=== PATIENT | male | born 1955 | race Caucasian/White ===

== ENCOUNTER 2018-09-10 22:52 | Outpatient (REF) | payer OTHER, SELFPAY ==
[2018-09-10 23:13] LABS: Anion Gap 10.4 mmol/L (3-11); BUN 21 mg/dL (7-18); CO2 25.6 mmol/L (21.0-32.0); CREATININE 0.99 mg/dL (0.70-1.30); Calcium 8.6 mg/dL (8.5-10.1); Chloride 105 mmol/L (98-107); Cholesterol 247 mg/dL (50-200); Glucose 128 mg/dL (70-100); HDL Cholesterol 55 mg/dL (40-60); LDL CHOLESTEROL 166 mg/dL (<100); Potassium 4.3 mmol/L (3.5-5.1); Sodium 141 mmol/L (136-145); Triglyceride 198 mg/dL (30-150)
== END 2018-09-10 23:12 ==
LOC: NCHCN 22:52
PROVIDERS: PCP Physician Assistant Medical; Visit Provider Specialist/Technologist Athletic Trainer
DX: Z00.00 Encounter for general adult medical examination without abnormal findings (principal); Z13.220 Encounter for screening for lipoid disorders; Z13.228 Encounter for screening for other metabolic disorders
CPT/HCPCS: 80048; 80061; 83721

== ENCOUNTER 2019-12-10 07:48 | Outpatient (REF) | payer OTHER, SELFPAY ==
[2019-12-10 18:10] LABS: ALT 22 U/L (16-63); AST 25 U/L (15-37); Albumin 4.1 g/dL (3.4-5.0); Alkaline Phosphatase 55 U/L (46-116); Anion Gap 11.1 mmol/L (3-11); BUN 21 mg/dL (7-18); Bilirubin, Total 0.4 mg/dL (0.2-1.0); CO2 22.9 mmol/L (21.0-32.0); CREATININE 0.86 mg/dL (0.70-1.30); Calcium 8.6 mg/dL (8.5-10.1); Chloride 103 mmol/L (98-107); Glucose 114 mg/dL (74-106); Potassium 4.2 mmol/L (3.5-5.1); Sodium 137 mmol/L (136-145); Total Protein 6.9 g/dL (6.4-8.2)
[2019-12-10 18:44] LABS: Calculated LDL 166 mg/dL (<100); Cholesterol 236 mg/dL (<200); HDL Cholesterol 49 mg/dL (40-60); Triglyceride 107 mg/dL (<150)
== END 2019-12-10 08:08 ==
LOC: NCHCN 07:48
PROVIDERS: PCP Physician Assistant Medical; Visit Provider Nurse Practitioner Family
DX: E78.5 Hyperlipidemia, unspecified (principal); Z00.00 Encounter for general adult medical examination without abnormal findings
CPT/HCPCS: 80053; 80061

== ENCOUNTER 2020-02-09 18:22 | Outpatient (REF) | payer OTHER, SELFPAY ==
[2020-02-09 19:53] LABS: Hemoglobin A1C 5.9 % (3.8-5.6)
== END 2020-02-09 18:42 ==
LOC: NCHCN 18:22
PROVIDERS: PCP Physician Assistant Medical; Visit Provider Nurse Practitioner Family
DX: R73.03 Prediabetes (principal)
CPT/HCPCS: 83036

== ENCOUNTER 2020-05-04 07:52 | Outpatient (REF) | payer OTHER, SELFPAY ==
[2020-05-08 12:52] LABS: PSA, Screening 4.7 ng/mL (0.0-4.5)
== END 2020-05-04 08:12 ==
LOC: NCHCN 07:52
PROVIDERS: PCP Physician Assistant Medical; Visit Provider Nurse Practitioner Family
DX: N40.0 Benign prostatic hyperplasia without lower urinary tract symptoms (principal); Z12.5 Encounter for screening for malignant neoplasm of prostate
CPT/HCPCS: 84153

== ENCOUNTER 2020-11-22 03:27 | Outpatient (CLI) | payer MEDICARE, SELFPAY ==
[2020-11-22 17:06] LABS: PSA, Screening 5.9 ng/mL (0.0-4.5)
== END 2020-11-22 03:28 | disposition home or self-care (01) ==
LOC: LBO 03:27
PROVIDERS: PCP Nurse Practitioner Family; Visit Provider Nurse Practitioner Gerontology
DX: N40.1 Benign prostatic hyperplasia with lower urinary tract symptoms (principal); Z12.5 Encounter for screening for malignant neoplasm of prostate
CPT/HCPCS: 36415; 84153

== ENCOUNTER → 2020-11-30 15:38 | Outpatient (BNVA) | payer MEDICARE, SELFPAY | PROVIDERS: PCP Nurse Practitioner Family; Referring Provider Nurse Practitioner Family; Visit Provider Nurse Practitioner Gerontology | DX: N40.1 Benign prostatic hyperplasia with lower urinary tract symptoms (principal); R97.20 Elevated prostate specific antigen [PSA] | CPT/HCPCS: 99442 ==

== ENCOUNTER 2021-02-22 03:03 | Outpatient (CLI) | payer MEDICARE, SELFPAY ==
[2021-02-23 14:31] LABS: Free PSA/PSA Ratio 0.16 ratio
== END 2021-02-22 03:04 | disposition home or self-care (01) ==
LOC: LBO 03:03
PROVIDERS: PCP Nurse Practitioner Family; Visit Provider Nurse Practitioner Gerontology
DX: N40.1 Benign prostatic hyperplasia with lower urinary tract symptoms (principal); R97.20 Elevated prostate specific antigen [PSA]
CPT/HCPCS: 36415; 84154

== ENCOUNTER → 2021-03-01 15:17 | Outpatient (BNVA) | payer MEDICARE, SELFPAY | PROVIDERS: PCP Nurse Practitioner Family; Referring Provider Nurse Practitioner Family; Visit Provider Nurse Practitioner Gerontology | DX: R97.20 Elevated prostate specific antigen [PSA] (principal); N40.1 Benign prostatic hyperplasia with lower urinary tract symptoms; N13.8 Other obstructive and reflux uropathy | CPT/HCPCS: 99213 ==

== ENCOUNTER 2021-08-29 03:15 | Outpatient (CLI) | payer MEDICARE, SELFPAY ==
[2021-08-29 23:09] LABS: PSA, Diagnostic 5.4 ng/mL (0.0-4.5)
== END 2021-08-29 03:16 | disposition home or self-care (01) ==
LOC: LBO 03:15
PROVIDERS: PCP Nurse Practitioner Family; Visit Provider Nurse Practitioner Gerontology
DX: N40.1 Benign prostatic hyperplasia with lower urinary tract symptoms (principal); R97.20 Elevated prostate specific antigen [PSA]
CPT/HCPCS: 36415; 84153

== ENCOUNTER → 2021-09-05 14:17 | Outpatient (BNVA) | payer MEDICARE, SELFPAY | PROVIDERS: PCP Nurse Practitioner Family; Visit Provider Nurse Practitioner Gerontology | DX: N40.1 Benign prostatic hyperplasia with lower urinary tract symptoms (principal); R97.20 Elevated prostate specific antigen [PSA]; Z79.899 Other long term (current) drug therapy | CPT/HCPCS: 99214 ==

== ENCOUNTER 2022-01-22 21:44 | Outpatient (REF) | payer MEDICARE, SELFPAY ==
[2022-01-22 19:59] LABS: Hemoglobin A1C 6.1 % (<5.7)
[2022-01-22 20:08] LABS: Calculated LDL 143 mg/dL (<100); Cholesterol 233 mg/dL (<200); HDL Cholesterol 55 mg/dL (40-60); Triglyceride 176 mg/dL (<150)
== END 2022-01-22 21:45 | disposition home or self-care (01) ==
LOC: NCHCN 21:44
PROVIDERS: PCP Nurse Practitioner Family; Visit Provider Nurse Practitioner Family
DX: E78.5 Hyperlipidemia, unspecified (principal); R73.03 Prediabetes
CPT/HCPCS: 80061; 83036

== ENCOUNTER 2022-02-28 02:34 | Outpatient (CLI) | payer MEDICARE, SELFPAY | END 2022-02-28 02:35 | disposition home or self-care (01) | LOC: LBO 02:34 | PROVIDERS: PCP Nurse Practitioner Family; Visit Provider Nurse Practitioner Gerontology | DX: N40.1 Benign prostatic hyperplasia with lower urinary tract symptoms (principal); R97.20 Elevated prostate specific antigen [PSA] | CPT/HCPCS: 36415; 84153 ==

== ENCOUNTER → 2022-03-07 14:14 | Outpatient (BNVA) | payer MEDICARE, SELFPAY | PROVIDERS: PCP Nurse Practitioner Family; Referring Provider Nurse Practitioner Family; Visit Provider Nurse Practitioner Gerontology | DX: N13.8 Other obstructive and reflux uropathy (principal); N40.1 Benign prostatic hyperplasia with lower urinary tract symptoms; R97.20 Elevated prostate specific antigen [PSA] | CPT/HCPCS: 99214 ==

== ENCOUNTER 2022-09-02 02:59 | Outpatient (CLI) | payer MEDICARE, SELFPAY ==
[2022-09-02 22:17] LABS: PSA, Diagnostic 4.3 ng/mL (<=4.5)
== END 2022-09-02 03:00 | disposition home or self-care (01) ==
LOC: LBO 02:59
PROVIDERS: PCP Nurse Practitioner Family; Visit Provider Nurse Practitioner Gerontology
DX: R97.20 Elevated prostate specific antigen [PSA] (principal); N40.1 Benign prostatic hyperplasia with lower urinary tract symptoms
CPT/HCPCS: 36415; 84153

== ENCOUNTER → 2022-09-10 13:45 | Outpatient (BNVA) | payer MEDICARE, SELFPAY | PROVIDERS: PCP Nurse Practitioner Family; Referring Provider Nurse Practitioner Family; Visit Provider Nurse Practitioner Gerontology | DX: R39.89 Other symptoms and signs involving the genitourinary system (principal); R97.20 Elevated prostate specific antigen [PSA]; N40.1 Benign prostatic hyperplasia with lower urinary tract symptoms | CPT/HCPCS: 51798; 99213 ==

== ENCOUNTER 2023-03-04 02:57 | Outpatient (CLI) | payer MEDICARE, SELFPAY ==
[2023-03-04 20:21] LABS: PSA, Diagnostic 4.6 ng/mL (<=4.5)
== END 2023-03-04 02:58 | disposition home or self-care (01) ==
LOC: LBO 02:57
PROVIDERS: PCP Nurse Practitioner Family; Visit Provider Nurse Practitioner Gerontology
DX: R97.20 Elevated prostate specific antigen [PSA] (principal); N40.1 Benign prostatic hyperplasia with lower urinary tract symptoms
CPT/HCPCS: 36415; 84153

== ENCOUNTER → 2023-03-11 14:14 | Outpatient (BNVA) | payer MEDICARE, SELFPAY | PROVIDERS: PCP Nurse Practitioner Family; Visit Provider Nurse Practitioner Gerontology | DX: R97.20 Elevated prostate specific antigen [PSA] (principal); N40.1 Benign prostatic hyperplasia with lower urinary tract symptoms; R39.89 Other symptoms and signs involving the genitourinary system | CPT/HCPCS: 51798; 99213 ==

== ENCOUNTER 2023-06-15 14:10 | Emergency (ER) | payer MEDICARE, SELFPAY ==
[2023-06-15 14:20] VITALS: BP 139/84; PULSE 89; RESP 18; TEMP 37; O2SAT 96
[2023-06-15] MEDS: Lidocaine/Epinephri/Tetracaine Topical Gel 3 ML TP (14:57)
--- NOTE | 2023-06-15 15:30 | ED.GENADUL_ITS ---
Discharge Plan Disposition Patient Disposition: Home Condition: Stable Discharge Details Clinical Impression: Laceration of hand, left Primary Care Provider: Selina Wise ED Provider: Gentry Stanley Home Meds and New Rx's Prescriptions: Continued vmskprc-ltgn-olhvf-oreg-capryl 100 mg-150 mg- 50 mg-150 mg capsule 1 cap PO DAILY vitamn C 500 mg PO DAILY Discontinued tamsulosin [Flomax] 0.4 mg capsule 0.4 mg PO DAILY Qty: 90 3RF Discharge Instructions Instructions: Laceration (ED) Additional Instructions: Keep dressing intact for the next 2 days. Change dressing daily thereafter. Monitor for signs of infection including increased warmth, redness, swelling, discharge or pain. Return to the ER immediately for any worsening or new concerning symptoms. Sutures should be removed in 14 days. Please contact your primary care physician to arrange follow-up. Referrals: Selina Wise [Primary Care Provider] - Medical Decision Making 68-year-old male here with full-thickness laceration left dorsal hand that occ urred on sheet-metal just prior to arrival. Wound was anesthetized with topical lidocaine and local injection. Wound was irrigated with copious sterile saline. Laceration repaired without complicat ion. Sterile dressing was applied. Usual customary discharge instructions were reviewed with patient HPI General Mode of arrival: ambulatory . Date/Time Provider Initiated Documentation: 06/15/23 14:22 . Limitations to Documentation: no limitations . Information obtained by: patient . HPI Narrative: 68-year-old male here with chief complaint of laceration to his left hand. Laceration occurred just prior to arrival. Patient notes he cut his hand on sheet metal. Unsure of last tetanus status. No associated numbness or tingling. No focal weakness. Related Data Home Medications Medication Instructions Recorded Confirmed tumeric 100 mg-brynn 150 mg-olive 1 cap PO DAILY 06/15/23 06/15/23 50 mg-oreg 150 mg-caprylate capsule vitamn C 500 mg PO DAILY 06/15/23 06/15/23 Allergies Allergy/AdvReac Type Severity Reaction Status Date / Time Kqslgpb-FLH-PqX Reductase Allergy lethargy Verified 06/15/23 14:23 Inhibitor [Npowwjo-Iuq-Pxu Reductase Inhibitor] General Stated Complaint: Laceration JIM: 4 Review of Systems Integumentary/Breasts Skin/Breast: Reports as per HPI PFSH All Active Problems Laceration of hand, left (Acute) Elevated PSA (Acute) BPH loc w urin obs/LUTS (Chronic) Medical History Adenomatous polyp of colon Right inguinal hernia Kidney stones Surgical History Colonoscopy - IV Sedation Family History Other Heart disease Myocardial infarction Stroke Social History Smoking/Tobacco Use Status: Never Smoking risk assessment performed?: Yes Alcohol Intake: current Alcohol Intake frequency: a few times a week Drug use: Occasionally Substance use type: marijuana Housing: house Do you feel safe at home: Yes Do you feel safe in your relationship?: Yes Exam Extrem Right upper extremity: hand Details: normal capillary refill, neuromotor exam normal, neurosensory exam normal, tendon exam normal and laceration (5cm linear laceration dorsal rt hand full thickness ) Course Vital Signs Vital signs: Vital Signs Temperature 37 C 06/15/23 14:20 Pulse 89 06/15/23 14:20 Respiratory Rate 18 06/15/23 14:20 Blood Pressure 139/84 06/15/23 14:20 Pulse Oximetry 96 06/15/23 14:20 Temperature 37 C 06/15/23 14:20 Temperature Source Temporal Artery Scan 06/15/23 14:20 Pulse 89 06/15/23 14:20 Respiratory Rate 18 06/15/23 14:20 Blood Pressure 139/84 06/15/23 14:20 Blood Pressure Position Sitting 06/15/23 14:20 Pulse Oximetry 96 06/15/23 14:20 Oxygen Delivery Method Room Air 06/15/23 14:20 Oxygen Flow Rate 0 06/15/23 14:20 Procedures Laceration Laceration 1: Site: hand Side (If applicable): right Size (cm): 5 Description: linear Depth: simple, single layer Local Anesthetic: Lidocaine 1% and with Epi Amount of anesthesia used (mL): 4 Pre-repair: wound explored, irrigated extensively and deep structures intact Skin layer closed with: nylon Size (cm): 4-0 Number of sutures: 6 Technique: simple, interrupted PAWSS Have you Been Recently Intoxicated or Drunk Within the Last 30 days?: No Have you Ever Experienced Previous Episodes of Alcohol Withdrawal?: No Have you ever Experienced Withdrawal Seizures?: No Have you ever Experienced Delirium Tremens(DT)s?: No Have you ever undergone Alcohol Rehabilitation Treatment (i.e, inpt ot outpatient treatment programs)?: No Have you ever Experienced Blackouts?: No Have you ever Combined Alcohol with other Downers within the last 90 days?: No Have you ever Combined Alcohol with any other Substance of Abuse during the last 90 days?: No Positive Blood Alcohol level on Presentation? [PCS.BAL]: No Evidence of Increased Autonomic Activity (i.e. HR>120, tremor, sweating, agitation, nausea)?: No Result: 0
== END 2023-06-15 15:44 | disposition home or self-care (01) ==
PROVIDERS: Emergency Provider Student in an Organized Health Care Education/Training Program; PCP Nurse Practitioner Family
DX: M79.642 Pain in left hand (principal); S61.412A Laceration without foreign body of left hand, initial encounter; W26.8XXA Contact with other sharp object(s), not elsewhere classified, initial encounter
CPT/HCPCS: 12002

== ENCOUNTER 2023-09-03 02:46 | Outpatient (CLI) | payer MEDICARE, SELFPAY | END 2023-09-03 02:47 | disposition home or self-care (01) | LOC: LBO 02:46 | PROVIDERS: PCP Nurse Practitioner Family; Visit Provider Nurse Practitioner Gerontology | DX: N40.1 Benign prostatic hyperplasia with lower urinary tract symptoms (principal); R97.20 Elevated prostate specific antigen [PSA] | CPT/HCPCS: 36415; 84153 ==

== ENCOUNTER → 2023-09-10 14:16 | Outpatient (BNVA) | payer MEDICARE, SELFPAY | PROVIDERS: PCP Nurse Practitioner Family; Visit Provider Nurse Practitioner Gerontology | DX: N40.1 Benign prostatic hyperplasia with lower urinary tract symptoms (principal); R97.20 Elevated prostate specific antigen [PSA]; R35.0 Frequency of micturition | CPT/HCPCS: 51798; 99213 ==

== ENCOUNTER 2024-03-03 03:55 | Outpatient (CLI) | payer MEDICARE, SELFPAY ==
[2024-03-03 19:19] LABS: PSA, Diagnostic 4.8 ng/mL (<=4.5)
== END 2024-03-03 03:56 | disposition home or self-care (01) ==
LOC: LBO 03:55
PROVIDERS: PCP Nurse Practitioner Family; Visit Provider Nurse Practitioner Gerontology
DX: R97.20 Elevated prostate specific antigen [PSA] (principal); N40.1 Benign prostatic hyperplasia with lower urinary tract symptoms
CPT/HCPCS: 36415; 84153

== ENCOUNTER → 2024-03-10 09:09 | Outpatient (BNVA) | payer MEDICARE, SELFPAY | PROVIDERS: PCP Nurse Practitioner Family; Referring Provider Nurse Practitioner Family; Visit Provider Nurse Practitioner Gerontology | DX: N40.1 Benign prostatic hyperplasia with lower urinary tract symptoms (principal); R97.20 Elevated prostate specific antigen [PSA] | CPT/HCPCS: 51798; 99213 ==

== ENCOUNTER 2024-03-31 14:44 | Outpatient (REF) | payer MEDICARE, SELFPAY ==
[2024-03-31 19:19] LABS: HGB 13.1 g/dL (13.5-17.5); MCH 31.8 pg (27.0-33.0); MCHC 33.6 % (32.0-36.0); MCV 95 fL (80-95); MPV 11.5 fL (8.0-11.0); Platelet Count 327 10^3/uL (130-400); RBC 4.12 10^6/uL (4.36-5.78); RDW 13.2 % (11.8-14.1); RDW-SD 45.7 fL; WBC 9.36 10^3/uL (4.4-10.8)
[2024-03-31 19:27] LABS: ALT 13 U/L (16-63); AST 32 U/L (15-37); Albumin 4.1 g/dL (3.4-5.0); Alkaline Phosphatase 74 U/L (46-116); Anion Gap 10.6 mmol/L (3-11); BUN 34 mg/dL (7-18); Bilirubin, Total 0.27 mg/dL (0.2-1.0); CO2 25.4 mmol/L (21.0-32.0); CREATININE 0.9 mg/dL (0.70-1.30); Calcium 9.9 mg/dL (8.5-10.1); Calculated LDL 133 mg/dL (<100); Chloride 106 mmol/L (98-107); Cholesterol 218 mg/dL (<200); Estimated GFR 92.45 (mL/min/1.73m2); Glucose 166 mg/dL (74-106); HDL Cholesterol 47 mg/dL (40-60); Potassium 3.9 mmol/L (3.5-5.1); Sodium 142 mmol/L (136-145); Total Protein 7.2 g/dL (6.4-8.2); Triglyceride 190 mg/dL (<150)
[2024-03-31 20:17] LABS: Hemoglobin A1C 5.9 % (<5.7)
== END 2024-03-31 14:45 | disposition home or self-care (01) ==
LOC: NCHCN 14:44
PROVIDERS: PCP Nurse Practitioner Family; Visit Provider Nurse Practitioner Family
DX: Z00.00 Encounter for general adult medical examination without abnormal findings (principal)
CPT/HCPCS: 80053; 80061; 85027; 83036

== ENCOUNTER 2024-09-01 03:13 | Outpatient (CLI) | payer MEDICARE, SELFPAY ==
[2024-09-01 18:12] LABS: PSA, Diagnostic 7.3 ng/mL (<=4.5)
== END 2024-09-01 03:14 | disposition home or self-care (01) ==
LOC: LBO 03:14
PROVIDERS: PCP Nurse Practitioner Family; Visit Provider Nurse Practitioner Gerontology
DX: R97.20 Elevated prostate specific antigen [PSA] (principal); N40.1 Benign prostatic hyperplasia with lower urinary tract symptoms
CPT/HCPCS: 36415; 84153

== ENCOUNTER → 2024-09-08 08:40 | Outpatient (BNVA) | payer MEDICARE, SELFPAY | PROVIDERS: PCP Nurse Practitioner Family; Visit Provider Nurse Practitioner Gerontology | DX: N40.1 Benign prostatic hyperplasia with lower urinary tract symptoms (principal); R97.20 Elevated prostate specific antigen [PSA] | CPT/HCPCS: 51798; 99213 ==

== ENCOUNTER 2025-02-16 22:25 | Outpatient (REF) | payer MEDICARE, SELFPAY ==
[2025-02-18 09:11] LABS: Lyme Ab w Rflx to Lyme Confirm Negative (Negative)
== END 2025-02-16 22:26 | disposition home or self-care (01) ==
LOC: NCHCN 22:25
PROVIDERS: PCP Nurse Practitioner Family; Visit Provider Nurse Practitioner Family
DX: T14.90XA Injury, unspecified, initial encounter (principal); W57.XXXA Bitten or stung by nonvenomous insect and other nonvenomous arthropods, initial encounter
CPT/HCPCS: 86618

== ENCOUNTER 2025-03-02 02:39 | Outpatient (CLI) | payer MEDICARE, SELFPAY ==
[2025-03-02 18:26] LABS: PSA, Diagnostic 7.1 ng/mL (<=6.5)
== END 2025-03-02 02:40 | disposition home or self-care (01) ==
PROVIDERS: PCP Nurse Practitioner Family; Visit Provider Nurse Practitioner Gerontology
DX: R97.20 Elevated prostate specific antigen [PSA] (principal); N40.1 Benign prostatic hyperplasia with lower urinary tract symptoms
CPT/HCPCS: 36415; 84153

== ENCOUNTER → 2025-03-09 09:45 | Outpatient (BNVA) | payer MEDICARE, SELFPAY | PROVIDERS: PCP Nurse Practitioner Family; Visit Provider Nurse Practitioner Gerontology | DX: N40.1 Benign prostatic hyperplasia with lower urinary tract symptoms (principal); R97.20 Elevated prostate specific antigen [PSA]; R63.4 Abnormal weight loss; M25.551 Pain in right hip; M25.552 Pain in left hip; R39.9 Unspecified symptoms and signs involving the genitourinary system | CPT/HCPCS: 99214; 51798 ==

== ENCOUNTER 2025-04-04 16:16 | Outpatient (REF) | payer MEDICARE, SELFPAY ==
[2025-04-04 17:16] LABS: HCT 39.5 % (40.0-50.0); HGB 13.6 g/dL (13.5-17.5); MCH 32.1 pg (27.0-33.0); MCHC 34.4 % (32.0-36.0); MCV 93 fL (80-95); MPV 11.7 fL (8.0-11.0); Platelet Count 322 10^3/uL (130-400); RBC 4.24 10^6/uL (4.36-5.78); RDW 12.8 % (11.8-14.1); RDW-SD 43.4 fL; WBC 8.11 10^3/uL (4.4-10.8)
[2025-04-04 17:42] LABS: Hemoglobin A1C 5.9 % (<5.7)
[2025-04-04 18:08] LABS: ALT 29 U/L (16-63); AST 20 U/L (15-37); Albumin 4.0 g/dL (3.4-5.0); Alkaline Phosphatase 64 U/L (46-116); Anion Gap 13.8 mmol/L (3-11); BUN 25 mg/dL (7-18); Bilirubin, Total 0.3 mg/dL (0.2-1.0); CO2 23.2 mmol/L (21.0-32.0); Calcium 8.8 mg/dL (8.5-10.1); Calculated LDL 153 mg/dL (<100); Chloride 104 mmol/L (98-107); Cholesterol 229 mg/dL (<200); Estimated GFR 103.85 (mL/min/1.73m2); Glucose 120 mg/dL (74-106); HDL Cholesterol 49 mg/dL (>or=40); Potassium 4.3 mmol/L (3.5-5.1); Sodium 141 mmol/L (136-145); Total Protein 7.1 g/dL (6.4-8.2); Triglyceride 138 mg/dL (<150)
== END 2025-04-04 16:17 | disposition home or self-care (01) ==
LOC: NCHCN 16:16
PROVIDERS: PCP Nurse Practitioner Family; Visit Provider Nurse Practitioner Family
DX: Z00.00 Encounter for general adult medical examination without abnormal findings (principal)
CPT/HCPCS: 80053; 80061; 85027; 83036

== ENCOUNTER 2025-04-06 02:08 | Outpatient (CLI) | payer MEDICARE, SELFPAY ==
--- NOTE | 2025-04-06 | DI.RAD_ITS ---
Exam(s) XR SHOULDER RT COMPLETE 2+V EXAM: XR SHOULDER RT COMPLETE 2+V CLINICAL HISTORY: RT SHOULDER PAIN,M25.511,REDUCED RANGE OF MOTION. TECHNIQUE: 2D digital imaging was performed. Five views. COMPARISON: No exams were available for comparison FINDINGS: BONES: No acute fracture is present. No bony destructive lesion is seen. Degenerative cysts in the greater tuberosity. JOINTS: No dislocation present. Mild spurring at AC joint and glenohumeral joint. Glenohumeral joint space is maintained. SOFT TISSUE: Normal. IMPRESSION: Mild degenerative changes. DATA REPOSITORY: RADIATION DOSE DELIVERED:
== END 2025-04-06 02:28 ==
LOC: DI 02:08
PROVIDERS: PCP Nurse Practitioner Family; Visit Provider Nurse Practitioner Family
DX: M25.511 Pain in right shoulder (principal)
CPT/HCPCS: 73030

== ENCOUNTER → 2025-04-12 08:38 | Outpatient (BNVA) | payer MEDICARE, SELFPAY | PROVIDERS: PCP Nurse Practitioner Family; Referring Provider Nurse Practitioner Family; Visit Provider Nurse Practitioner Gerontology | DX: N40.1 Benign prostatic hyperplasia with lower urinary tract symptoms (principal); R97.20 Elevated prostate specific antigen [PSA]; R63.4 Abnormal weight loss; R26.89 Other abnormalities of gait and mobility; M25.551 Pain in right hip; M25.552 Pain in left hip | CPT/HCPCS: 99214 ==

== ENCOUNTER 2025-04-21 12:29 | Outpatient (CLI) | payer MEDICARE, SELFPAY ==
--- NOTE | 2025-04-21 | DI.US_ITS ---
APPROVED REPORT EXAM: Comprehensive 2D, Doppler, and color-flow Echocardiogram Patient Location: Out-Patient Body Welder: Do Woodurff RDCS (AE) Indications: Cardiac murmur, Fatigue, Progressive BROWN Other Information Study Quality: Adequate Conclusion Normal left ventricular wall thickness and chamber size. Ejection fraction is 60%. Wall motion is normal Normal right ventricular size and function Both atria are normal in size There are no structural valvular abnormalities Mild mitral and tricuspid regurgitation Ascending aorta measures 3.66 cm Wall motion Left Ventricle The left ventricle is normal size. The left ventricular systolic function is normal. The left ventricular ejection fraction is within the normal range. There is normal left ventricular wall thickness. There is normal LV segmental wall motion. There is no ventricular septal defect visualized. LVEF is 60%. Right Ventricle The right ventricle is normal size. The right ventricular systolic function is normal. Atria The left atrium size is normal. The right atrium size is normal. The interatrial septum is intact with no evidence for an atrial septal defect. Aortic Valve The aortic valve is normal in structure. Aortic valve is trileaflet. There is no aortic valvular stenosis. No aortic regurgitation is present. Mitral Valve The mitral valve is normal in structure. No evidence of mitral valve stenosis. Mild mitral regurgitation. Tricuspid Valve The tricuspid valve is normal in structure. There is no tricuspid valve stenosis. Mild tricuspid regurgitation. The RVSP is 26.5 mmHg. Pulmonic Valve The pulmonary valve is normal in structure. There is no pulmonic valvular stenosis. Trace to mild pulmonic regurgitation. Great Vessels The aortic root is normal in size. The ascending aorta is mildly dilated. Aortic arch is normal in caliber. IVC is normal in size and collapses >50% with inspiration. Pericardium There is no pericardial effusion. 2D Dimensions IVSD d PLAX 0.90 cm M: 0.6-1.2 Ao Root d 3.75 cm M: 3.1 - 3.7 LVPW d PLAX 0.90 cm M: 0.6 - 1.2 Ao Asc Diam d 3.66 cm M: 2.6 - 3.4 LVID d PLAX 4.60 cm M: 4.2 - 5.8 LVDs 3.20 cm M: 2.5 - 4.0 LV EF Teichholz 58.8 % FS 31.06 % LV EDV (Teich) 96.6 mL LV ESV (Teich) 39.7 mL Auto EF LV EDV A4C 128.9 mL LV EDV A2C 133.4 mL LV EDV BP 132.9 mL LV ESV A4C 58.4 mL LV ESV A2C 60.3 mL LV ESV BP 60.3 mL LVEF(%) A4C 54.7 % LVEF(%) A2C 54.8 % LVEF(%) BP 54.7 % LV SV A4C 70.5 ml LV SV A2C 73.1 ml LV SV BP 72.7 ml LV CO A4C 5.5 L/min LV CO A2C 5.8 L/min LV CO BP 5.7 L/min HR A4C 78.43 BPM HR A2C 79.12 BPM LV EDV Index (BP) LA Volume LA Length A4C 4.8 cm LA Length A2C 4.5 cm LA Area A4C s 11.71 cm2 LA Area A2C s 12.69 cm2 LA Vol A4C A-L 24.18 mL LA Vol A2C A-L 30.55 mL LA Vol Biplane A-L 28.2 mL LA Vol/BSA A4C A-L LA Vol/BSA A2C A-L LA Vol/BSA BP A-L 16.3 mL/m2 LA Vol A4C MOD 18.6 mL LA Vol A2C MOD 27.4 mL LA Vol BP MOD 23.3 mL RA Volume RA Area A4C 13.5 cm2 RA ESV A4C (A-L) 30.9mL RA Vol/BSA A4C A-L RA Length A4C 5.0 cm RA ESV A4C (MOD) 29.1mL LV Diastology MV E Vmax 0.82 (0.4-1.3 m/s) MV A Vmax 0.85 (0.4-1.3 m/s) E/A Ratio 1.0 Aortic Valve AoV Vmax 1.40 m/s LVOT Vmax 1.17 m/s AoV Peak Grad 7.9 mmHg LVOT Peak Grad 5.5 mmHg AoV Area (Vmax) 2.58 cm2 LVOT VTI 0.243 m AoV VTI 0.309 m LVOT Mean Grad 2.7 mmHg AoV Mean Janes. 1.00 m/s LVOT SV 75.18 mL AoV Mean Grad 4.6 mmHg LVOT Diam s 1.95 cm AoV Area (VTI) 2.44 cm2 AV Regurg Peak Gr. 7.89 mmHg Velocity Ratio 0.84 Mitral Valve MV DT 202 (160-240 msec) MV Vmax TIPS 0.73 m/s MV Mean Grad 1.3 (<2mmHg) MV VTI 0.214 m Pulmonary Valve PV Vmax 0.94 (0.5-1.5 m/s) RVOT Vmax 0.74 m/s PV Peak Grad 3.5 mmHg RVOT Peak Gr. 2.2 mmHg PV Mean Janes 0.69 m/s RVOT VTI 0.161 m PV Mean Grad 2.2 mmHg RVOT Mean Gr. 1.3 mmHg Tricuspid Valve RA Pressure 3.00 mmHg TR Vmax 2.42 m/s TR Peak Grad 23.4 mmHg RVSP (TR) 26.5 mmHg
== END 2025-04-21 12:49 ==
LOC: DI 12:30
PROVIDERS: PCP Nurse Practitioner Family; Visit Provider Nurse Practitioner Family
DX: R01.1 Cardiac murmur, unspecified (principal); I08.1 Rheumatic disorders of both mitral and tricuspid valves
CPT/HCPCS: 93306

== ENCOUNTER 2025-05-24 10:07 | Outpatient (REF) | payer MEDICARE, SELFPAY ==
[2025-05-24 15:34] LABS: Abs Immature Grans 0.02 10^3/uL (0.0-0.06); HCT 39.2 % (40.0-50.0); HGB 13.1 g/dL (13.5-17.5); Immature Grans % 0.3 %; MCH 31.3 pg (27.0-33.0); MCHC 33.4 % (32.0-36.0); MCV 94 fL (80-95); MPV 11.5 fL (8.0-11.0); Platelet Count 378 10^3/uL (130-400); RBC 4.18 10^6/uL (4.36-5.78); RDW 12.4 % (11.8-14.1); RDW-SD 43.1 fL; WBC 7.91 10^3/uL (4.4-10.8)
[2025-05-24 15:38] LABS: ESR 13 mm/hr (0-20)
[2025-05-24 15:45] LABS: Hemoglobin A1C 5.7 % (<5.7)
[2025-05-24 15:49] LABS: ALT 20 U/L (16-63); AST 18 U/L (15-37); Albumin 3.9 g/dL (3.4-5.0); Alkaline Phosphatase 74 U/L (46-116); Anion Gap 11.0 mmol/L (3-11); BUN 31 mg/dL (7-18); Bilirubin, Total 0.2 mg/dL (0.2-1.0); CO2 27.0 mmol/L (21.0-32.0); Calcium 9.1 mg/dL (8.5-10.1); Chloride 105 mmol/L (98-107); Estimated GFR 95.21 (mL/min/1.73m2); Glucose 101 mg/dL (74-106); Potassium 4.6 mmol/L (3.5-5.1); Sodium 143 mmol/L (136-145); Total Protein 7.0 g/dL (6.4-8.2)
[2025-05-24 15:50] LABS: C-Reactive Protein < 0.50 mg/dL (<or=0.5)
== END 2025-05-24 10:08 | disposition home or self-care (01) ==
LOC: NCHCN 10:07
PROVIDERS: PCP Nurse Practitioner Family; Visit Provider Nurse Practitioner Family
DX: Z01.818 Encounter for other preprocedural examination (principal)
CPT/HCPCS: 80053; 85652; 83036; 85025; 86140